=== PATIENT | male | born 1940 | race Caucasian/White ===

== ENCOUNTER 2024-04-05 21:51 | Emergency (ER) | payer MEDICARE ==
[~2024-04-05 21:51] MED LIST: AMIODARONE 50 MG/ML 3 ML VIAL IV ONE; EPINEPHrine 10 ML SYRINGE (0.1 MG/ML) ONE; NOREPINEPHRINE 1 MG/ML 4 ML VIAL IV ONE; SODIUM BICARB 8.4% 50 ML SYR (1 MEQ/ML) ONE; SODIUM CHLORIDE 0.9% 250 ML BAG ONE
== END 2024-04-05 22:24 | disposition expired ==
LOC: EC 21:51
DX: I46.9 Cardiac arrest, cause unspecified (principal)
CPT/HCPCS: 92950; 93005; 99284